=== PATIENT | female | born 1970 | race Caucasian/White ===

== ENCOUNTER 2018-10-24 02:38 | Emergency (ER) | payer OTHER ==
[~2018-10-24] VITALS: Ht 167.6 cm; Wt 74.8 kg
--- NOTE | 2018-10-24 02:51 | NUR ---
Patient arrive at the ER with chief complaint of constipation x2 days. Patient reported last BM was 2 days ago and noted parasite on her stool. Patient also complaining of sore throat x3 days. Patient was seen at [facility] yesterday for sore throat and rapid strep was done which was negative. Patient is here for further evaluation. Patient denies any N/V. Patient AAOx4. In no acute distress. No cardiovascular concern.
--- NOTE | 2018-10-24 02:54 | NUR ---
FAMILIA BISWAS at bedside for MSE.
[2018-10-24] MEDS ORDERED: PENICILLIN G BENZATHINE 2.4 MMU/4 ML DISP.SYRIN IM ONE ×2 (03:00→03:09)
--- NOTE | 2018-10-24 03:27 | NUR ---
Patient discharged to home in stable conditon. Written and verbal after care instructions given. Patient verbalizes understanding of instructions. Patient ambulated with stable gait. Provided patient with toilet hat and specimen container to collect stool and submit for specialist.
[2018-10-24 03:29] VITALS: BP 139/78
== END 2018-10-24 03:30 | disposition home or self-care (01) ==
LOC: ER 02:49
DX: B88.9 Infestation, unspecified (principal); J02.9 Acute pharyngitis, unspecified; F17.200 Nicotine dependence, unspecified, uncomplicated; Z90.49 Acquired absence of other specified parts of digestive tract
CPT/HCPCS: A4663

== ENCOUNTER 2018-11-07 15:00 | Emergency (ER) | payer OTHER ==
[~2018-11-07] VITALS: Ht 167.6 cm; Wt 74.8 kg
--- NOTE | 2018-11-07 15:35 | NUR ---
Dr Quintana at the bedside for MSE.
[2018-11-07 15:51] LABS: *BILIRUBIN,URIN 1+ (NEGATIVE); *COLOR,URINE DARK YELLOW (YELLOW); *KETONES,URINE TRACE (NEGATIVE); NITRITE, URINE POSITIVE (NEGATIVE); UGLUCOSE NEGATIVE (NEGATIVE)
[2018-11-07 15:52] LABS: *URINE HCG, QUAL NEGATIVE (NEGATIVE)
[2018-11-07 16:00] LABS: *BLOOD, URINE TRACE (NEGATIVE)
[2018-11-07 16:01] LABS: *CLARITY,URINE CLOUDY (CLEAR); LEUKOCYTE ESTERASE ,URINE TRACE (NEGATIVE)
[2018-11-07 16:03] LABS: BACTERIA,URINE MANY /HPF (NONE SEEN); MUCUS,URINE MANY /LPF (0-FEW); SQUAMOUS EPITHELIAL CELL,UR MODERATE /HPF (NONE SEEN)
[2018-11-07 17:26] VITALS: BP 122/78
--- NOTE | 2018-11-07 17:28 | NUR ---
Patient discharged to home in stable conditon. Written and verbal after care instructions given. Patient verbalizes understanding of instructions.
== END 2018-11-07 17:28 | disposition home or self-care (01) ==
LOC: ER 15:00
DX: K59.00 Constipation, unspecified (principal); J40 Bronchitis, not specified as acute or chronic; F17.200 Nicotine dependence, unspecified, uncomplicated; Z90.49 Acquired absence of other specified parts of digestive tract
CPT/HCPCS: 84703; 87077; 87086; A4663